=== PATIENT | male | born 1960 | race Caucasian/White ===

== ENCOUNTER 2016-11-15 17:15 | Emergency (ER) | payer SELFPAY ==
--- NOTE | 2016-11-15 18:04 | EDM.PDOC ---
ED HPI GENERAL MEDICAL PROBLEM - General Chief Complaint: Head Injury Stated Complaint: PT HURT HEAD Time Seen by Provider: 11/15/16 18:03 Source of Information: Reports: Patient History Limitations: Reports: No Limitations - History of Present Illness INITIAL COMMENTS - FREE TEXT/NARRATIVE: HISTORY AND PHYSICAL: []55-year-old male presenting with concerns over head trauma History of Present Illness: []Hit his head on the door yesterday there is a puncture type wound on the crown of his head he has been feeling foggy not normal lightheaded Review of Systems: As per history of present illness and below otherwise all systems reviewed and negative. Past medical history: As per history of present illness and as reviewed below otherwise noncontributory. Surgical history: As per history of present illness and as reviewed below otherwise noncontributory. Social history: No reported history of drug or alcohol abuse. Family history: As per history of present illness and as reviewed below otherwise noncontributory. Physical exam: Alert and oriented no loss of consciousness speak in full sentences without any shortness of breath. HEENT: Atraumatic, normocehpalic, pupils reactive, negative for conjunctival pallor or scleral icterus, mucous membranes moist, throat clear, neck supple, nontender, trachea midline. The crown of his head with a puncture wound Lungs: Clear to auscultation, breath sounds equal bilaterally, chest non tender. Heart: S1S2, regular, negative for clicks, rubs, or JVD. Abdomen: Soft, nondistended, nontender. Negative for masses or hepatossplenmegaly. Negative for costovertebral tenderness. Pelvis: Stable nontender. Genitourinary: Deferred. Rectal: Deferred Extremities: Atraumatic, negative for cords or calf pain. Neurovascular unremarkable. Neuro: Awake, alert, oriented. Cranial nerves II through XII unremarkable. Cerebellum unremarkable. Motor and sensory unremarkable throughout. Exam nonfocal. Diagnostics: [head CT] Therapeutics: [] Impression: []Concussion Sinusitis Plan: []Discharged to home Augmentin Definitive disposition and diagnosis as appropriate pending reevaluation and review of above. head area Pain Score (Numeric/FACES): 5 - Related Data Allergies Allergy/AdvReac Type Severity Reaction Status Date / Time No Known Allergies Allergy Verified 11/15/16 17:31 Home Meds: Home Meds Amoxicillin/Potassium Clav [Augmentin 875-125 Tablet] 1 each PO BID #28 tablet 11/15/16 [Rx] Aspirin 1 tab PO DAILY 11/15/16 [History] Fluticasone Propionate [Flonase] 2 spray NASBOTH DAILY 11/15/16 [History] atorvaSTATin Calcium [Atorvastatin Calcium] 1 tab PO DAILY 11/15/16 [History] Past Medical History HEENT History: Reports: None Cardiovascular History: Reports: High Cholesterol Respiratory History: Reports: None Gastrointestinal History: Reports: None Genitourinary History: Reports: None Musculoskeletal History: Reports: None Neurological History: Reports: None Psychiatric History: Reports: None Endocrine/Metabolic History: Reports: None Hematologic History: Reports: None Immunologic History: Reports: None Oncologic (Cancer) History: Reports: None Dermatologic History: Reports: None - Infectious Disease History Infectious Disease History: Reports: None - Past Surgical History HEENT Surgical History: Reports: Naso-Sinus Surgery, Oral Surgery, Tonsillectomy Social & Family History - Family History Family Medical History: Noncontributory - Tobacco Use Smoking Status *Q: Never Smoker - Caffeine Use Caffeine Use: Reports: Soda - Recreational Drug Use Recreational Drug Use: No ED ROS GENERAL - Review of Systems Review Of Systems: ROS reveals no pertinent complaints other than HPI. ED EXAM, HEAD INJURY - Physical Exam Exam: See Below (See dictation) Course - Vital Signs Last Recorded V/S: Last Vital Signs Temp 36.7 C 11/15/16 17:33 Pulse 96 11/15/16 17:33 Resp 18 11/15/16 17:33 BP 136/76 11/15/16 17:33 Pulse Ox 96 11/15/16 17:33 - Orders/Labs/Meds Orders: Active Orders 24 hr Category Date Time Status Head wo Cont [CT] Stat Exams 11/15/16 18:02 Taken Departure - Departure Time of Disposition: 19:11 Disposition: Home, Self-Care 01 Condition: Good Clinical Impression: Concussion with no loss of consciousness, Sinusitis chronic, ethmoidal - Discharge Information Prescriptions: Amoxicillin/Potassium Clav [Augmentin 875-125 Tablet] 1 each PO BID #28 tablet Referrals: PCP,None [Primary Care Provider] - Forms: ED Department Discharge Additional Instructions: The following information is given to patients seen in the emergency department who are being discharged to home. This information is to outline your options for follow-up care. We provide all patients seen in our emergency department with a follow-up referral. The need for follow-up, as well as the timing and circumstances, are variable depending upon the specifics of your emergency department visit. If you don't have a primary care physician on staff, we will provide you with a referral. We always advise you to contact your personal physician following an emergency department visit to inform them of the circumstance of the visit and for follow-up with them and/or the need for any referrals to a consulting specialist. The emergency department will also refer you to a specialist when appropriate. This referral assures that you have the opportunity for followup care with a specialist. All of these measure are taken in an effort to provide you with optimal care, which includes your followup. Under all circumstances we always encourage you to contact your private physician who remains a resource for coordinating your care. When calling for followup care, please make the office aware that this follow-up is from your recent emergency room visit. If for any reason you are refused follow-up, please contact the [facility] emergency department at and asked to speak to the emergency department charge nurse. Augmentin 875 twice daily 14 days No fracture was noted on the head CT scan no internal bleeding Follow-up with your primary care provider - My Orders Last 24 Hours: My Active Orders 11/15/16 18:02 Head wo Cont [CT] Stat - Assessment/Plan Last 24 Hours: My Active Orders 11/15/16 18:02 Head wo Cont [CT] Stat
[2016-11-15 19:55] VITALS: BP 121/79
--- NOTE | 2016-11-17 10:52 | CT ---
EXAM DATE: 11/15/16 PATIENT'S AGE: 55 Patient: RAPHAEL BILLY Facility: [place], [place] Site . Site : 1960 Study: CT Head WO CONT [id number] 6:21:23 PM Ordering Physician: Doctor John Final Report: INDICATION: Hit head yesterday. Pain and fatigue. Technique: CT head without IV contrast. Findings: Moderate fluid and mucosal thickening in the maxillary sinuses. Moderate diffuse fluid and mucosal thickening in the ethmoidal sinuses. Minimal mucous and mucosal thickening in the sphenoid sinuses. Findings consistent with sinusitis. No intracranial hemorrhage, edema, or mass-effect. Mild cerebral atrophy. Remainder negative. Impression: 1. No acute intracranial disease. 2. [id number] sinusitis greatest in the ethmoidal sinuses. Please note that all CT scans at this facility use dose modulation, iterative reconstruction, and/or weight-based dosing when appropriate to reduce radiation dose to as low as reasonably achievable. Dictated by Harley Denise MD @ Nov 15 2016 7:01PM (Electronic Signature) Report Signed by Proxy. [facility]
== END 2016-11-15 19:50 | disposition home or self-care (01) ==
LOC: MW.ED 17:15
DX: S06.0X0A Concussion without loss of consciousness, initial encounter (principal); J32.2 Chronic ethmoidal sinusitis; E78.00 Pure hypercholesterolemia, unspecified; Z79.82 Long term (current) use of aspirin; Z79.899 Other long term (current) drug therapy; W22.8XXA Striking against or struck by other objects, initial encounter
CPT/HCPCS: 70450; 70450-26; 99283; 99283-25

== ENCOUNTER 2021-03-22 08:23 | Day surgery (SDC) | payer BC, OTHER ==
[~2021-03-22 08:23] MED LIST: Lactated Ringers 1,000 ML IV SCH
[2021-03-22] MEDS ORDERED: Propofol 200 MG/20 ML SDV ONE ×2 (10:31→10:59)
[2021-03-22] MEDS ORDERED: Lactated Ringers 1,000 ML IV SCH (11:30)
[2021-03-22 11:55] VITALS: BP 124/77; PULSE 74
== END 2021-03-22 12:15 | disposition home or self-care (01) ==
LOC: MW.SDS 08:23
PROVIDERS: ATTEND Surgery
DX: K62.1 Rectal polyp (principal); K64.8 Other hemorrhoids; E78.00 Pure hypercholesterolemia, unspecified; K21.9 Gastro-esophageal reflux disease without esophagitis; E66.9 Obesity, unspecified; K42.9 Umbilical hernia without obstruction or gangrene; M62.08 Separation of muscle (nontraumatic), other site; Z79.82 Long term (current) use of aspirin; Z79.899 Other long term (current) drug therapy; Z87.891 Personal history of nicotine dependence; Z98.890 Other specified postprocedural states
CPT/HCPCS: 45380; J2704; J7120; 00811

== ENCOUNTER 2022-04-23 13:14 | Emergency (ER) | payer OTHER ==
[2022-04-23] MEDS ORDERED: Ondansetron 4 MG Tab.DIS PO ONE (14:21)
[2022-04-23] MEDS ORDERED: Acetaminophen 500 MG Tab PO ONE (14:21)
[2022-04-23 19:29] VITALS: BP 178/107; PULSE 74
== END 2022-04-23 16:05 | disposition home or self-care (01) ==
LOC: MW.ED 13:14
DX: S06.0X0A Concussion without loss of consciousness, initial encounter (principal); E78.00 Pure hypercholesterolemia, unspecified; E66.9 Obesity, unspecified; Z79.82 Long term (current) use of aspirin; Z68.33 Body mass index [BMI] 33.0-33.9, adult; Z79.899 Other long term (current) drug therapy; W01.198A Fall on same level from slipping, tripping and stumbling with subsequent striking against other object, initial encounter
CPT/HCPCS: 70450; 72125; 99283; A9270